=== PATIENT | male | born 1955 | race Caucasian/White ===

== ENCOUNTER 2023-10-16 15:36 | Emergency (ER) | payer MEDICARE, OTHER, SELFPAY ==
[2023-10-16 15:39] VITALS: BP 150/77
[2023-10-16 16:00] VITALS: BMI 26.5
--- NOTE | 2023-10-16 16:26 | ED.GENMED ---
History of Present Illness
General
Chief Complaint: Skin Surface Trauma
Time Seen by Provider: 10/16/23 15:45
Travel History
Have you had any contact with someone who has COVID-19?: No
Do you have any symptoms of coronavirus? Fever > 100 degrees, chills, cough, shortness of breath, sore throat, loss of taste or smell, muscle aches, or headache?: No
History of Present Illness
History of Present Illness:
68-year-old male presents to the emergency department for persistent bleeding to the right nare sustained while attempting to clip his nostril hairs today. Bleeding has essentially resolved upon my arrival
Review of Systems
Review of Systems
Allergies reviewed?: Yes
All Other Systems: ROS reviewed and negative except as documented in HPI and ROS
Phy Exam
Physical Exam
Physical Exam:
GEN: Well appearing, NAD, WDWN
HEENT: Oral mucosa moist, no scleral icterus. No obvious bleeding from the right external nare
Cardiac: Regular rate
Lung: No respiratory distress, no tachypnea
MSK: No gross deformity or injuries
Skin: Good color, no pallor or jaundice, no rashes
Neuro: AO x3, moves all extremities freely
Psych: Calm, cooperative
Course
Vital Signs
Initial and Last Documented VS:
Initial Vital Signs
Temp Pulse Resp BP Pulse Ox
98.2 F 58 16 150/77 98
10/16/23 15:39 10/16/23 15:39 10/16/23 15:39 10/16/23 15:39 10/16/23 15:39
Last Documented Vital Signs
Temp Pulse Resp BP Pulse Ox
98.2 F 58 16 150/77 98
10/16/23 15:39 10/16/23 15:39 10/16/23 15:39 10/16/23 15:39 10/16/23 15:39
MDM/Problems Addressed
MDM/Problems Addressed:
Hemostasis achieved with direct pressure prior to my evaluation.
*Critical Care Note
Total Time (30-74mins, 75-104mins- exclusive of procedures): Not Applicable
ED Attending Note
-
Portions of this chart may have been created with voice recognition software.� Occasional wrong word or��sound alike� substitutions may have occurred due to the inherent limitations of voice recognition software.
Discharge Plan
Departure
Patient Disposition: Home (Routine Discharge)
Date of Disposition: 10/16/23
Time of Disposition: 16:26
Patient with high blood pressure during this ER visit?: No
Discharge Problem:
Puncture wound
Instructions: Wound Care (DC)
Prescriptions:
No Action
No Current Medications
0
Interventions
Interventions:
*Risk Screen - Suicide Last Done: 10/16/23 16:00
*General Assessment Last Done: 10/16/23 16:00
*Neglect/Abuse Screening Last Done: 10/16/23 16:00
ED- Fall Risk Assessment Last Done: 10/16/23 16:00
*ED COVID-19 Vaccine History Last Done: 10/16/23 15:39
*Nursing Disposition Last Done: 10/16/23 16:48
ED-Skin Assessment Last Done: 10/16/23 16:00
Discharge Date and Time
Discharge Date/Time: 10/16/23 16:48
== END 2023-10-16 16:48 | disposition home or self-care (01) ==
LOC: EMR 15:36
PROVIDERS: EMERGENCY PHYSICIAN Emergency Medicine; FAMILY PHYSICIAN Internal Medicine
DX: S01.23XA Puncture wound without foreign body of nose, initial encounter (principal); W26.8XXA Contact with other sharp object(s), not elsewhere classified, initial encounter
CPT/HCPCS: 99282

== ENCOUNTER → 2025-08-07 18:38 | Outpatient (REF) | payer MEDICARE, OTHER, SELFPAY | LOC: PAVMRI 18:38 | PROVIDERS: ATTENDING PHYSICIAN Family Medicine | DX: R41.3 Other amnesia (principal) | CPT/HCPCS: 70551 ==